=== PATIENT | male | born 1945 | race American Indian/Alaskan Native ===

== ENCOUNTER 2016-04-21 21:57 | Emergency (ER) | payer MEDICARE ==
--- NOTE | 2016-04-21 23:43 | Emergency Department Report ---
Chief Complaint: Nosebleed Stated Complaint: NOSE BLEED Time Seen by Provider: 04/21/16 23:29 - HPI History of Present Illness: 71-year-old male presents today with nosebleed 3 days that comes and goes. Patient denies any use of blood thinners. Patient states that she he has been using calcitonin salmon nasal spray 5 days. Denies blood in the back of his history. Denies fever, chills, nausea, vomiting, chest pain, shortness of breath, abdominal pain. Explained to patient that his blood pressure is elevated. Patient's currently on carvedilol and was certain and states that he has not taken his blood pressure medicine today. Patient has his medicines with him and states he will take it right now. - ROS Review of Systems: Per HPI - Exam Vital Signs: Vital Signs 04/21/16 22:26 Temperature 97.9 F Pulse Rate 97 H Respiratory 20 Rate Blood Pressure 204/105 O2 Sat by Pulse 96 Oximetry Physical Exam: General: 71-year-old male in no acute distress. Well-developed, well-nourished. Nose: Dried blood noted. No active bleeding. Throat: No blood noted. No erythema, swelling or exudates. CV: Regular rate and rhythm. Lungs: Clear to auscultation bilaterally. MSE screening note: Focused history and physical exam performed. Due to findings the following was ordered: ED Disposition for MSE Condition: Stable
[2016-04-22 00:39] VITALS: BP 187/103
--- NOTE | 2016-04-23 18:27 | ED Elopement Review ---
ED Pt Elopement review - Call Back decision Pt Call Back Decision: Pt to F/U with PMD
== END 2016-04-22 00:36 | disposition left against medical advice (07) ==
LOC: ED 21:57
DX: R04.0 Epistaxis (principal); I10 Essential (primary) hypertension; Z53.21 Procedure and treatment not carried out due to patient leaving prior to being seen by health care provider

== ENCOUNTER 2019-01-20 07:02 | Observation (INO) | payer MEDICARE ==
[2019-01-20] MEDS ORDERED: SODIUM CHLORIDE 0.9% 1000 ML 1,000 ML ONE ×2 (07:25→16:39)
[2019-01-20] MEDS ORDERED: SODIUM CHLORIDE 0.9% 1000 ML 1,000 ML IV SCH (08:00)
[2019-01-20 08:14] LABS: INR 1.2 (0.87-1.13)
[2019-01-20 08:15] LABS: Partial Thromboplastin Time 42.8 Sec. (24.2-36.6)
[2019-01-20 08:17] LABS: Calcium 9.4 mg/dL (8.4-10.2)
[2019-01-20 08:23] LABS: Hematocrit 32.2 % (35.5-45.6); Hemoglobin 10.1 gm/dl (11.8-15.2); Mean Corpuscular HGB Conc 31 % (32-34); Mean Corpuscular Volume 92 fl (84-94); Red Blood Count 3.52 M/mm3 (3.65-5.03)
[2019-01-20 08:37] LABS: Red Cell Distribution Width 26.1 % (13.2-15.2)
[2019-01-20 09:33] LABS: Platelet Count 794 K/mm3 (140-440)
[2019-01-20] MEDS ORDERED: LIDOCAINE 1%/EPINEPHRINE 1:100,000 VIAL (20 ML) INFILTRATI ONE (10:37)
[2019-01-20] MEDS ORDERED: HEPARIN/NS 5000 UNIT/500ML 1,000 ML IR ONE ×2 (10:37→12:20)
[2019-01-20] MEDS ORDERED: PROPOFOL 1,000 MG/100 ML BOTTLE IV ONE (10:41)
[2019-01-20] MEDS ORDERED: MIDAZOLAM 2 MG/2 ML INJ ONE (10:41)
[2019-01-20] MEDS ORDERED: HYDROmorphone 1 MG/1 ML INJ ONE (10:42)
--- NOTE | 2019-01-20 11:17 | Anesthesia Consultation ---
Anesthesia Consult and Med Hx Date of service: 01/20/19 - Airway Anesthetic Teeth Evaluation: Dentures (upper and lower) ROM Head & Neck: Adequate Mental/Hyoid Distance: Adequate Mallampati Class: Class I Intubation Access Assessment: Good - Pre-Operative Health Status ASA Pre-Surgery Classification: ASA3 Proposed Anesthetic Plan: MAC - Pulmonary Hx Smoking: Yes (1 p/day x 50 years) Hx Asthma: No COPD: Yes Hx Pneumonia: No Hx Sleep Apnea: No - Cardiovascular System Hx Hypertension: Yes Hx Heart Attack/AMI: Yes (CABG x 3 (2015)) Hx Peripheral Vascular Disease: Yes (right foot gangrene, resting pain) - Central Nervous System CVA: Yes Hx Back Pain: Yes - Endocrine Hx Renal Disease: Yes (chronic renal insufficiency) Hx End Stage Renal Disease: No Hx Insulin Dependent Diabetes: Yes - Hematic Hx Anemia: Yes - Other Systems Hx Alcohol Use: No Hx Substance Use: No Hx Cancer: No
--- NOTE | 2019-01-20 11:18 | Anesthesia Day of Surgery ---
Anesthesia Day of Surgery - Day of Surgery Patient Examined: Yes Patient H&P Reviewed: Yes Patient is NPO: Yes Beta Blockers: Yes
[2019-01-20] MEDS: VERAPAMIL 5 MG/2 ML INJ ONE ×2 (11:22→12:23)
[2019-01-20] MEDS: HEPARIN 10,000 UNITS/10 ML VIAL ONE ×9 (11:22→14:40)
[2019-01-20] MEDS: NITROGLYCERIN SYRINGE 3 ML ONE ×2 (11:27→12:23)
[2019-01-20] MEDS ORDERED: CLINDAMYCIN 600 MG/50 mL 600 MG/50 ML BAG IV NR (11:30)
[2019-01-20] MEDS ORDERED: WATER FOR INJ Sterile (PF) 10 ML ONE (11:49)
[2019-01-20] MEDS ORDERED: ALTEPLASE 2 MG INJ ONE (11:49)
[2019-01-20] MEDS ORDERED: SODIUM CHLORIDE 0.9% 1000 ML 0 ML ONE (11:56)
[2019-01-20] MEDS ORDERED: SODIUM CHLORIDE 0.9% 500 ML 500 ML ONE (13:43)
[2019-01-20] MEDS ORDERED: PROPOFOL 200 MG/20 ML VIAL IV ONE ×2 (13:44)
--- NOTE | 2019-01-20 14:13 | Vascular Lab Report ---
VL GUIDE VASCULAR ACCESS HISTORY: Vessel ID for arteriogram FINDINGS: Ultrasound guidance was provided by radiology. 8 ultrasound images are presented during vessel identi fication for arteriogram. The left common femoral artery and right dorsalis pedis artery were imaged and cannulated. Please correlate with the procedural report by Dr. Dey Signer Name: Joel Hagan Jr, MD Signed: 01/20/2019 2:08 PM Workstation Name: [id number]
[2019-01-20] MEDS ORDERED: MORPHINE 4 MG/1 ML INJ IV PRN (15:32)
[2019-01-20] MEDS ORDERED: ONDANSETRON 4 MG/2 ML INJ IV PRN (15:33)
--- NOTE | 2019-01-20 15:41 | Short Stay Summary ---
Short Stay Documentation Date of service: 01/20/19 Narrative H&P: Right 5th ulcer and gangrene. Right foot pain. - History Principal diagnosis: Peripheral vascular disease and right 5th toe gangene. H&P: obtained from office - Allergies and Medications Current Medications: Allergies Penicillins Allergy (Intermediate, Verified 01/20/19 07:31) Rash Home Medications Medication Instructions Recorded Confirmed Last Taken Type Aspirin 325 mg PO DAILY 11/24/15 01/20/19 01/19/19 History 1 tab Ergocalciferol(Vitamin D2)(Nf) 1,000 unit PO DAILY 11/24/15 01/20/19 01/19/19 History [Vitamin D (Nf)] Insulin Glargine,Hum.rec.anlog 40 units SQ QHS 11/24/15 01/20/19 01/19/19 History [Lantus Solostar] Donepezil [Aricept] 10 mg PO QHS 30 Days tablet 11/26/15 01/20/19 01/19/19 Rx Alogliptin 6.25 mg PO DAILY 01/20/19 01/20/19 01/19/19 History 1 tab Furosemide [Lasix TAB] 40 mg PO QDAY 01/20/19 01/20/19 01/19/19 History 1 tab Lisinopril [Zestril] 20 mg PO QDAY 01/20/19 01/20/19 01/19/19 History 1 tab Memantine [Namenda] 10 mg PO BID 01/20/19 01/20/19 01/19/19 History 1 tab Metoprolol Succinate [Toprol Xl] 200 mg PO DAILY 01/20/19 01/20/19 01/19/19 History 1 tab Pantoprazole [Protonix] 40 mg PO QDAY 01/20/19 01/20/19 01/19/19 History 1 tab Simvastatin [Zocor TAB] 80 mg PO QHS 01/20/19 01/20/19 01/19/19 History 1 tab Tamsulosin [Flomax] 0.4 mg PO QDAY 01/20/19 01/20/19 01/19/19 History 1 tab hydrALAZINE [Apresoline] 25 mg PO Q8HR 01/20/19 01/20/19 01/19/19 History 1 tab Active Medications Sodium Chloride (Nacl 0.9% 1000 Ml) 1,000 mls @ 125 mls/hr IV DIRECT ANKITA Last Admin: 01/20/19 07:45 Dose: 125 mls/hr Documented by: Clindamycin HCl (Cleocin 600 Mg/50 Ml) 600 mg in 50 mls @ 100 mls/hr IV PREOP NR; Protocol Stop: 01/20/19 17:00 Last Admin: 01/20/19 11:30 Dose: 50 mls Documented by: Morphine Sulfate (Morphine) 4 mg IV Q4H PRN PRN Reason: Pain , Severe (7-10) Ondansetron HCl (Zofran) 4 mg IV Q8H PRN PRN Reason: Nausea And Vomiting - Physical exam General appearance: no acute distress Integumentary: no rash HEENT: Atraumatic, PERRLA Lungs: Clear to auscultation Heart: Regular rate, Normal S1, Normal S2 Gastrointestinal: normal Male Genitourinary: deferred Rectal Exam: deferred Extremities: abnormal (1 + edema of extremitie. Pulses not palpable on the right. Dopplerable right DP. Ulceration with partial gangrene of the right 5th toe.) Neurological: Normal speech - Brief post op/procedure progress note Date of procedure: 01/20/19 Pre-op diagnosis: Right popliteal artery occluson with distal run-off occlions Post-op diagnosis: same Procedure: RLE arteriogram with right SFA/popliteal angioplasty and right anterior tibial artery angioplasty Anesthesia: MAC Findings: Full report to follow Surgeon: SARIKA GILL Estimated blood loss: minimal Pathology: none Condition: stable - Hospital course Hospital course: Patient to be admitted overnight for observation and pain control - Disposition Dis[facility]: [id number] IP Short Stay Discharge Plan Follow up with: ISAIAH HWANG JR, MD [Primary Care Provider] - 7 Days
[2019-01-20] MEDS ORDERED: hydrALAZINE 25 MG TAB PO SCH (16:00)
[2019-01-20] MEDS ORDERED: hydrALAZINE 25 MG TAB ONE (16:46)
--- NOTE | 2019-01-20 17:41 | Post Anesthesia Evaluation ---
- Post Anesthesia Evaluation Patient Participated: Yes Airway Patent: Yes Stable Respiratory Function: Yes Nausea/Vomiting: No Temp > 96.8F: Yes Pain Manageable: Yes Adequeate Hydration: Yes Anesthesia Complications: No Block Receding Appropriately: Not Applicable Patient on Ventilator: No
[2019-01-20] MEDS ORDERED: INSULIN GLARGINE 100 UNITS/ML SUB-Q SCH (22:00)
--- NOTE | 2019-01-21 10:11 | Progress Note ---
Assessment and Plan 1. Continued right foot pain with ischemic changes. 2. Discussed with patient the options of possible bypass surgery. 3. Will refer to Dr. Correa to evaluate for bypass. 4. D/C to home. Subjective Date of service: 01/21/19 Principal diagnosis: Peripheral vascular disease and right 5th toe gangene. Interval history: S/P day one revascularization procedure of RLE Objective - Exam Narrative Exam: Patient has continued pain in the foot which is relieved when more in dependent position. Continues to have swelling of the right foot when in dependent position. - Constitutional Vitals: Vital Signs - 12hr 01/21/19 01/21/19 01/21/19 02:22 07:56 08:15 Temperature 98.2 F 98.4 F Pulse Rate 99 H 96 H Respiratory 18 18 Rate Blood Pressure 150/82 138/70 O2 Sat by Pulse 95 95 97 Oximetry General appearance: Present: no acute distress - EENT Eyes: PERRL ENT: hearing intact - Neck Neck: normal ROM - Respiratory Respiratory effort: normal Extremities: abnormal (Right foot swelling. Non-palpable pulses on the right wit h dopplerable DP. Dopplerable on the left. Right 5th ulceration and gangrene stable. Sensory intact. Able to move toes and foot with limited range of motion. Left groin access site clean without hematoma. Right pedal access site clean and dry.) - Gastrointestinal General gastrointestinal: Present: soft, non-tender - Labs CBC & Chem 7: 01/20/19 07:35 01/20/19 07:35 Medications & Allergies - Medications Allergies/Adverse Reactions: Allergies Penicillins Allergy (Intermediate, Verified 01/20/19 07:31) Rash Home Medications: Home Medications Medication Instructions Recorded Confirmed Last Taken Type Aspirin 325 mg PO DAILY 11/24/15 01/20/19 01/19/19 History 1 tab Ergocalciferol(Vitamin D2)(Nf) 1,000 unit PO DAILY 11/24/15 01/20/19 01/19/19 History [Vitamin D (Nf)] Insulin Glargine,Hum.rec.anlog 40 units SQ QHS 11/24/15 01/20/19 01/19/19 History [Lantus Solostar] Donepezil [Aricept] 10 mg PO QHS 30 Days tablet 11/26/15 01/20/19 01/19/19 Rx Alogliptin 6.25 mg PO DAILY 01/20/19 01/20/19 01/19/19 History 1 tab Furosemide [Lasix TAB] 40 mg PO QDAY 01/20/19 01/20/19 01/19/19 History 1 tab Lisinopril [Zestril] 20 mg PO QDAY 01/20/19 01/20/19 01/19/19 History 1 tab Memantine [Namenda] 10 mg PO BID 01/20/19 01/20/19 01/19/19 History 1 tab Metoprolol Succinate [Toprol Xl] 200 mg PO DAILY 01/20/19 01/20/19 01/19/19 History 1 tab Pantoprazole [Protonix] 40 mg PO QDAY 01/20/19 01/20/19 01/19/19 History 1 tab Simvastatin [Zocor TAB] 80 mg PO QHS 01/20/19 01/20/19 01/19/19 History 1 tab Tamsulosin [Flomax] 0.4 mg PO QDAY 01/20/19 01/20/19 01/19/19 History 1 tab hydrALAZINE [Apresoline] 25 mg PO Q8HR 01/20/19 01/20/19 01/19/19 History 1 tab Active Medications: Generic Name Dose Route Start Last Admin Trade Name Laila PRN Reason Stop Dose Admin Hydralazine HCl 25 mg 01/20/19 16:00 01/20/19 17:02 Apresoline PO 25 mg Q8HR ANKITA Administration Sodium Chloride 1,000 mls @ 125 mls/hr 01/20/19 08:00 01/20/19 07:45 Nacl 0.9% 1000 Ml IV 125 mls/hr DIRECT ANKITA Administration Insulin Glargine 40 units 01/20/19 22:00 01/21/19 00:18 Lantus SUB-Q 40 units QHS ANKITA Administration Morphine Sulfate 4 mg 01/20/19 15:32 01/21/19 05:11 Morphine IV 4 mg Q4H PRN Administration Pain , Severe (7-10) Ondansetron HCl 4 mg 01/20/19 15:33 Zofran IV Q8H PRN Nausea And Vomiting
[2019-01-21 12:17] VITALS: BP 141/72
--- NOTE | 2019-02-02 09:19 | Operative Report ---
DIAGNOSES: Right fifth toe ulcer with rest pain and peripheral vascular disease. PROCEDURE: Right lower extremity arteriogram, intravascular ultrasound, noncoronary initial vessel, intravascular ultrasound noncoronary additional vessel, right popliteal and SFA balloon angioplasty, right anterior tibial artery angioplasty, ultrasound guidance for vascular access. ANESTHESIA: Provided by anesthesia service. DESCRIPTION OF PROCEDURE: Following informed and written consent, the patient was placed supine on the angiographic table and the left groin as well as the right foot and ankle were prepped and draped in the usual sterile fashion. Lidocaine was used for local anesthetic and ultrasound guidance was utilized to access the left common femoral artery. This was performed using a micropuncture access set and then a 5-Sami vascular sheath was inserted. A Glidewire was negotiated into the abdominal aorta and a rim catheter was used to cross over to the contralateral side and the rim was exchanged for a 5-Sami vertebral catheter. Contrast was utilized to evaluate the proximal SFA and common femoral artery and the catheter was then negotiated into the distal SFA and evaluation of the remainder of the right lower extremity was performed using DSA imaging. At this point, a second access site was obtained at the pedal at the dorsalis pedis using ultrasound guidance and a pedal access set. A 4-Sami transitional dilator was inserted over a 0.018 inch guidewire and then a V18 guidewire coaxial with a 0.018 inch TrailBlazer catheter was advanced into the anterior tibial artery and attempts were performed to negotiate into the popliteal artery via retrograde access. This was also attempted via the antegrade access site from above using a crossing catheter and a 0.018 inch guidewire. Multiple attempts were made with multiple guidewires and catheters to cannulate intraluminally from above and below. At this point, the IVUS catheter was utilized from above and below to evaluate the size of the vessel as well as the intraluminal or suboptimal nature of the guidewire and catheters. A 3 mm balloon was utilized to dilate the mid and proximal anterior tibial artery as well as extending into the popliteal artery. At this point, a 5 mm balloon was utilized to dilate the popliteal artery from above as well as the entire SFA. Drug-coated balloon was utilized to dilate the popliteal artery as well as the distal SFA. Contrast was then injected from the catheter above to evaluate the end result. Despite multiple attempts of recannulation from below and above and balloon angioplasty, there was unsuccessful establishment of inline flow. At this point, the procedure was terminated and both access points and the sheath was removed from above and manual compression applied until adequate hemostasis was achieved as well as the catheter removed from below and manual compression applied until adequate hemostasis was achieved. The patient was taken to the recovery area in satisfactory condition and then discharged following an adequate recovery time. MEDICATIONS: 1. Heparin 7000 units. 2. Nitroglycerin 500 mcg, also 100 mL of Visipaque contrast. FINDINGS: There is extensive atherosclerotic disease present in the right lower extremity. There are areas of stenosis within the proximal, mid and distal SFA of 50-60% stenosis. Chronic occlusion of the popliteal artery is present at the level just above the knee joint with diffuse narrowing proximally. There is reconstitution of the mid peroneal artery, which supplies a communicating branch that reconstitutes the distal anterior tibial artery and dorsalis pedis. There is collateral flow to the ankle and plantar vessels with no distinct posterior tibial artery. IVUS evaluation did determine that the anterior tibial artery was between 2.5-3.5 mm and the popliteal artery was between 5 and 5.5 mm. Following balloon angioplasty of both the anterior tibial artery as well as the popliteal artery and SFA artery, there was unsuccessful recannulation into true luminal plane from above or below. There is recoil of the occlusion with unsuccessful establishment of inline flow into the popliteal or anterior tibial artery. Balloon angioplasty of the popliteal and superficial femoral arteries did improve luminal gain with better forward flow to the collaterals. There was continued reconstitution of the peroneal artery as well as the distal anterior tibial artery and dorsalis pedis to the foot. IMPRESSION: 1. Extensive atherosclerotic disease with areas of stenosis in the SFA and popliteal arteries. 2. Chronic occlusion of the popliteal artery with improved flow in the popliteal and superficial femoral arteries following balloon angioplasty. 3. Unsuccessful establishment of inline flow to the anterior tibial or peroneal arteries. 4. Reconstitution of the proximal to mid peroneal artery, which is the main runoff vessel, which supplies collateral reconstitution of the distal anterior tibial artery and dorsalis pedis as well as posterior tibial distribution. 5. We will refer the patient to Vascular Surgery to evaluate for a bypass. 6. The patient will continue on daily aspirin of 325 mg. We are unable to give Plavix or additional antiplatelet therapy due to previous bleeding and anemic episodes on these medications. [facility]# [id number] SOLOMON/SHAYNE HOLLOWAY
== END 2019-01-21 11:15 | disposition short-term general hospital (02) ==
LOC: CATHLABREC 07:02 → 2B-ACE 10:53
PROVIDERS: ADMIT Radiology Vascular & Interventional Radiology; ATTEND Radiology Vascular & Interventional Radiology
DX: M79.671 Pain in right foot (principal); L97.519 Non-pressure chronic ulcer of other part of right foot with unspecified severity; Z79.82 Long term (current) use of aspirin; Z79.4 Long term (current) use of insulin
CPT/HCPCS: 36415; 37224; 37228; 37252; 75710; 76937; 80048; 82962; 85027; 85610; 85730; 94760; 96365; 96372; 96375; C1725; C1769; C1887; C2623; G0378; J1170; J1644; J2250; J2270; J2704; J2997; J7030; J7040; J1815; Q9967